=== PATIENT | female | born 1955 | race Caucasian/White ===

== ENCOUNTER 2019-03-13 23:19 | Emergency (ER) | payer SELFPAY ==
[2019-03-14 00:42] LABS: ABSOLUTE BASOPHILS # (AUTO) 0.1 10^3/uL (0.0-0.2); ABSOLUTE LYMPHOCYTES (AUTO) 1.1 10^3/uL (0.5-4.7); ABSOLUTE MONOCYTES (AUTO) 0.9 10^3/uL (0.1-1.4); ABSOLUTE NEUT (AUTO) 7.3 10^3/uL (1.7-8.2); BASOPHILS % (AUTO) 0.6 % (0-2); HEMATOCRIT 37.7 % (36.0-47.0); HEMOGLOBIN 12.2 g/dL (12.0-15.5); LYMPHOCYTES % (AUTO) 11.8 % (13-45); MEAN CORPUSCULAR HEMOGLOBIN 28.1 pg (27.0-33.4); MEAN CORPUSCULAR HGB CONC 32.4 g/dL (32.0-36.0); MEAN CORPUSCULAR VOLUME 87 fl (80-97); MONOCYTES % (AUTO) 9.2 % (3-13); PLATELET COUNT 717 10^3/uL (150-450); RED BLOOD COUNT 4.35 10^6/uL (3.72-5.28); RED CELL DISTRIBUTION WIDTH 17.3 % (11.5-14.0); SEGMENTED NEUTROPHILS % (AUTO) 78.4 % (42-78); TOTAL CELLS COUNTED % (AUTO) 100 %; WHITE BLOOD COUNT 9.4 10^3/uL (4.0-10.5)
[2019-03-14 01:00] LABS: ALBUMIN 4.7 g/dL (3.5-5.0); ALCOHOL 172 mg/dL (NONE DETECTED); ALKALINE PHOSPHATASE 166 U/L (38-126); ASPARTATE AMINO TRANSFERASE 72 U/L (14-36); BILIRUBIN,DIRECT 0.6 mg/dL (0.0-0.4); BILIRUBIN,TOTAL 1.1 mg/dL (0.2-1.3); BLOOD UREA NITROGEN 17 mg/dL (7-20); CALCIUM 8.6 mg/dL (8.4-10.2); CARBON DIOXIDE 12 mmol/L (22-30); CHLORIDE 95 mmol/L (98-107); GLUCOSE 92 mg/dL (75-110); POTASSIUM 5.4 mmol/L (3.6-5.0); TOTAL PROTEIN 7.1 g/dL (6.3-8.2)
[2019-03-14 01:03] LABS: ACETAMINOPHEN < 10 ug/mL (10-30); SALICYLATE < 1.0 mg/dL (2.0-20.0)
[2019-03-14 01:11] LABS: ANION GAP 25 (5-19)
[2019-03-14 02:53] LABS: APPEARANCE,URINE SLIGHTLY-CLOUDY; BILIRUBIN,URINE NEGATIVE (NEGATIVE); COLOR,URINE YELLOW; GLUCOSE, URINE NEGATIVE (NEGATIVE); KETONES,URINE 80 mg/dL (NEGATIVE); LEUKOCYTE ESTERASE,URINE TRACE (NEGATIVE); NITRITE,URINE NEGATIVE (NEGATIVE); PROTEIN,URINE 30 mg/dL (NEGATIVE); URINE SPECIFIC GRAVITY 1.017; UROBILINOGEN,URINE NEGATIVE mg/dL (<2.0)
[2019-03-14 03:06] LABS: URINE AMPHETAMINES SCREEN NEGATIVE; URINE BARBITURATES SCREEN NEGATIVE; URINE BENZODIAZEPINES SCREEN NEGATIVE; URINE COCAINE SCREEN NEGATIVE; URINE MARIJUANA (THC) SCREEN NEGATIVE; URINE METHADONE SCREEN NEGATIVE; URINE PHENCYCLIDINE SCREEN NEGATIVE
[2019-03-14] MEDS ORDERED: DEXTROSE 5%-NORMAL SALINE 1,000 ML IV ONE (03:52)
--- NOTE | 2019-03-14 03:59 | ER Document Report ---
ED General - General Chief Complaint: Medical Clearance Stated Complaint: ETOH Time Seen by Provider: 03/14/19 03:34 Information source: Patient Notes: Patient referred here from [facility] for clearance due to alcohol abuse. Patient states that she had a lot of beer last night. She denies being suicidal or homicidal. She feels better now having received IV fluid. She is requesting some food. No nausea or vomiting. No chest pain or shortness of breath. No other complaints. TRAVEL OUTSIDE OF THE [place] IN LAST 30 DAYS: No - Related Data Allergies/Adverse Reactions: No Known Allergies Allergy (Unverified 03/14/19 04:44) Past Medical History - Social History Smoking Status: Never Smoker Frequency of alcohol use: Heavy Drug Abuse: None Family History: Reviewed & Not Pertinent Patient has suicidal ideation: No Patient has homicidal ideation: No - Past Medical History Cardiac Medical History: Reports: Hx Hypertension Psychiatric Medical History: Reports: Hx Depression Past Surgical History: Reports: Hx Cholecystectomy, Hx Hysterectomy Review of Systems - Review of Systems Constitutional: denies: Chills, Fever -: Yes All other systems reviewed and negative Physical Exam - Vital signs Vitals: Temp Pulse Resp BP Pulse Ox 97.9 F 117 H 14 155/92 H 98 03/13/19 23:34 03/13/19 23:34 03/13/19 23:34 03/13/19 23:34 03/13/19 23:34 Interpretation: Normal - General General appearance: Appears well, Alert - HEENT Head: Normocephalic, Atraumatic Eyes: Normal Pupils: PERRL - Respiratory Respiratory status: No respiratory distress Chest status: Nontender Breath sounds: Normal Chest palpation: Normal - Cardiovascular Rhythm: Regular Heart sounds: Normal auscultation Murmur: No - Abdominal Inspection: Normal Distension: No distension Bowel sounds: Normal Tenderness: Nontender Organomegaly: No organomegaly - Back Back: Normal, Nontender - Extremities General upper extremity: Normal inspection, Nontender, Normal color, Normal ROM, Normal temperature General lower extremity: Normal inspection, Nontender, Normal color, Normal ROM, Normal temperature, Normal weight bearing. No: Karla's sign - Neurological Neuro grossly intact: Yes Cognition: Normal Orientation: AAOx4 Artem Coma Scale Eye Opening: Spontaneous Artem Coma Scale Verbal: Oriented Artem Coma Scale Motor: Obeys Commands Artem Coma Scale Total: 15 Speech: Normal Motor strength normal: LUE, RUE, LLE, RLE Sensory: Normal - Psychological Associated symptoms: Normal affect, Normal mood - Skin Skin Temperature: Warm Skin Moisture: Dry Skin Color: Normal Course - Re-evaluation Re-evalutation: 03/14/19 03:57 EKG per me shows sinus tachycardia at 115. Normal QRS axis. Nonspecific ST changes. 03/14/19 03:58 IV fluids and crackers ordered for acidosis. 03/14/19 05:13 Ativan ordered for patient's jitteriness now that her alcohol level is coming down. 03/14/19 05:[address]ART OUT TO DR[address] MAY, AWAITING REHYDRATION AND DISPOSITION. PT STABLE. 03/14/19 05:59 - Vital Signs Vital signs: Temp Pulse Resp BP Pulse Ox 97.9 F 117 H 14 155/92 H 98 03/13/19 23:34 03/13/19 23:34 03/13/19 23:34 03/13/19 23:34 03/13/19 23:34 - Laboratory Result Diagrams: 03/14/19 00:30 03/14/19 00:30 Laboratory results interpreted by me: 03/14/19 03/14/19 03/14/19 00:30 00:30 02:35 RDW 17.3 H Plt Count 717 H Lymph % (Auto) 11.8 L Seg Neutrophils % 78.4 H Sodium 132.3 L Potassium 5.4 H Chloride 95 L Carbon Dioxide 12 L Anion Gap 25 H Direct Bilirubin 0.6 H AST 72 H Alkaline Phosphatase 166 H Urine Protein 30 H Urine Ketones 80 H Urine Blood SMALL H Ur Leukocyte Esterase TRACE H Salicylates < 1.0 L Acetaminophen < 10 L Discharge - Discharge Clinical Impression: Acidosis Acute alcohol intoxication Qualifiers: Complication of substance-induced condition: uncomplicated Qualified Code(s): F10.920 - Alcohol use, unspecified with intoxication, uncomplicated Condition: Stable Disposition: OTHER
[2019-03-14] MEDS ORDERED: ONDANSETRON HCL INJ/PF 4 MG/2 ML SDV IV ONE (04:41)
[2019-03-14] MEDS ORDERED: ONDANSETRON HCL INJ/PF 4 MG/2 ML SDV ONE (04:42)
[2019-03-14] MEDS ORDERED: LORAZEPAM INJ 2 MG/1 ML VIAL IV ONE (05:14)
[2019-03-14] MEDS ORDERED: NORMAL SALINE 1000 ML 1,000 ML IV ONE (06:30)
--- NOTE | 2019-03-14 06:34 | ER Document Report ---
ED General - General Chief Complaint: Medical Clearance Stated Complaint: ETOH Time Seen by Provider: 03/14/19 03:34 TRAVEL OUTSIDE OF THE [place] IN LAST 30 DAYS: No - HPI Notes: I assumed care of this patient from Dr. Sanders pending at the fluids and reassessment. Please see his note for full history and physical. Briefly, this is a 64-year-old female who presents for medical clearance for detox. She has a history of alcohol abuse. Her initial evaluation showed acidosis with a CO2 of 12. Patient is being hydrated. Patient tells me she feels much better.She has no physical complaints at this t morgan. - Related Data Allergies/Adverse Reactions: No Known Allergies Allergy (Unverified 03/14/19 04:44) Past Medical History - General Information source: Patient - Social History Smoking Status: Never Smoker Frequency of alcohol use: Heavy Drug Abuse: None Family History: Reviewed & Not Pertinent Patient has suicidal ideation: No Patient has homicidal ideation: No - Past Medical History Cardiac Medical History: Reports: Hx Hypertension Psychiatric Medical History: Reports: Hx Depression Past Surgical History: Reports: Hx Cholecystectomy, Hx Hysterectomy Physical Exam - Vital signs Vitals: Temp Pulse Resp BP Pulse Ox 97.9 F 117 H 14 155/92 H 98 03/13/19 23:34 03/13/19 23:34 03/13/19 23:34 03/13/19 23:34 03/13/19 23:34 Course - Re-evaluation Re-evalutation: 03/14/19 06:33 Pt is doing well. Has slight tremors and Ativan has been administered. 03/14/19 11:30 Patient reevaluated. Patient is doing well. Repeat BMP shows correction of anion gap. Patient's denies any further hallucinations. No more tremors. Patient has been seen by psychiatric team. She is stable to go back to detox. - Vital Signs Vital signs: Temp Pulse Resp BP Pulse Ox 97.9 F 117 H 21 H 155/70 H 97 03/13/19 23:34 03/13/19 23:34 03/14/19 10:01 03/14/19 10:01 03/14/19 10:01 - Laboratory Result Diagrams: 03/14/19 00:30 03/14/19 08:33 Laboratory results interpreted by me: 03/14/19 03/14/19 03/14/19 00:30 00:30 02:35 RDW 17.3 H Plt Count 717 H Lymph % (Auto) 11.8 L Seg Neutrophils % 78.4 H Sodium 132.3 L Potassium 5.4 H Chloride 95 L Carbon Dioxide 12 L Anion Gap 25 H Glucose Calcium Direct Bilirubin 0.6 H AST 72 H Alkaline Phosphatase 166 H Urine Protein 30 H Urine Ketones 80 H Urine Blood SMALL H Ur Leukocyte Esterase TRACE H Salicylates < 1.0 L Acetaminophen < 10 L 03/14/19 08:33 RDW Plt Count Lymph % (Auto) Seg Neutrophils % Sodium 132.7 L Potassium 5.1 H Chloride Carbon Dioxide 18 L Anion Gap Glucose 126 H Calcium 8.1 L Direct Bilirubin AST Alkaline Phosphatase Urine Protein Urine Ketones Urine Blood Ur Leukocyte Esterase Salicylates Acetaminophen Discharge - Discharge Clinical Impression: Acidosis Acute alcohol intoxication Qualifiers: Complication of substance-induced condition: uncomplicated Qualified Code(s): F10.920 - Alcohol use, unspecified with intoxication, uncomplicated Condition: Stable Disposition: REHAB FACILITY Additional Instructions: You have been evaluated both medical and behavioral health teams and been deemed appropriate for discharge. You are encouraged to continue taking your medical medications as directed. The behavioral health team has confirmed you still have your voluntary bed at [facility], please take any home medications with you. You are recommended to discuss continued treatment options with your treatment team during your stay at [facility]. ACUTE ALCOHOL INTOXICATION and ALCOHOL ABUSE: Your evaluation revealed very high levels of alcohol. You can from drinking a large amount of alcohol rapidly! Further, there's the risk of falls, traffic accidents, and fights. A high portion (about 50 percent) of the serious injuries seen in hospital emergency rooms are caused by alcohol. Alcohol overdosage is usually due to an underlying emotional or psychiatric problem. You may benefit from counselling. If "binge" drinking is an ongoing problem for you, or if you drink ANY AMOUNT of alcohol EVERY day, you most likely have a tendency to alcoholism. You should avoid alcohol totally. We can refer you for treatment. Persons with alcohol problems are often also prone to other addictions -- you should discuss any use of medications or drugs with the doctor. You should be watched at home for the next several hours by someone who has not been drinking. Get extra fluids for the next 24 hours. Call the doctor if there is repeated vomiting, increasing headache, decreasing level of alertness, or any other worsening. CHRONIC ALCOHOLISM and ALCOHOL ABUSE: Your evaluation reveals evidence of chronic alcoholism, an addiction to alcohol. The tendency to alcoholism may be inherited. Chronic use of alcohol weakens muscles, causes fatty deposits in the liver, damages the stomach, makes you more prone to infections, and can cause defects in unborn children. In the long run, brain atrophy and cirrhosis of the liver result. You are also at greater risk for certain types of cancer, such as cancer of the mouth, throat, stomach, and liver. Counselling services are available to help you. In-hospital treatment programs often help. Support groups such as Alcoholics Anonymous can be very useful in beating this addiction. Your physician can make a referral for you. As alcoholics often are prone to other addictions, you should discuss your use of any other medications with the doctor. ALCOHOL WITHDRAWAL: Your symptoms are caused by alcohol withdrawal. After a period of frequent drinking, the brain and body are changed by the alcohol. When you quit or reduce your drinking, the nervous system becomes unstable. Withdrawal symptoms can start a few hours after your last drink, but sometimes don't begin until a couple of days later. Symptoms can include shakiness, sweating, insomnia, nausea, vomiting, fearfulness, hallucinations, and seizures. In addition to the acute effects of alcohol withdrawal, we often have to deal with the medical effects of alcoholism. These problems often include dehydration, stomach irritation, intestinal bleeding, low blood sugar, liver disease, and pancreas inflammation. Treatment for alcohol withdrawal includes mild sedatives, vitamins, and fluids. You need to be with someone who can help if symptoms become severe. Many patients can withdraw at home. Admission to the hospital or a detox facility may be necessary if withdrawal symptoms are severe and uncontrollable. Abstaining from alcohol is the only effective long-term treatment. If you start drinking again, you will not be able to control yourself after the first drink. Treatment programs are available. In addition, many alcoholics benefit from Alcoholics Anonymous or other support groups available through your counselor or [employer] insurance policy clerk. [employer] and [employer] are support groups for friends and family members of an alcoholic. Go to the emergency room if you develop persistent vomiting, severe abdominal pain, fever, shortness of breath, hallucinations, uncontrollable tremors, or seizures. FOLLOW-UP CARE: If you have been referred to a physician for follow-up care, call the physicians office for an appointment as you were instructed or within the next two days. If you experience worsening or a significant change in your symptoms, notify the physician immediately or return to the Emergency Department at any time for re-evaluation.
--- NOTE | 2019-03-14 09:04 | EKG REPORT ---
SEVERITY:- BORDERLINE ECG - SINUS TACHYCARDIA BORDERLINE INFERIOR Q WAVES : Confirmed by: Dick Narayanan MD 14-Mar-2019 09:04:05
[2019-03-14 09:05] LABS: ANION GAP 17 (5-19); BLOOD UREA NITROGEN 14 mg/dL (7-20); CALCIUM 8.1 mg/dL (8.4-10.2); CARBON DIOXIDE 18 mmol/L (22-30); CHLORIDE 98 mmol/L (98-107); GLUCOSE 126 mg/dL (75-110); POTASSIUM 5.1 mmol/L (3.6-5.0)
[2019-03-14] MEDS ORDERED: THIAMINE HCL 100 MG in NORMAL SALINE 50 ML IV ONE (09:11)
[2019-03-14] MEDS ORDERED: THIAMINE HCL INJ 200 MG/2 ML VIAL ONE (09:22)
--- NOTE | 2019-03-14 10:08 | ER Document Report ---
Doctor's Note Notes: 03/14/19 10:07 Rounds: Chart reviewed and patient interviewed. Patient was at detox and referred here because her blood sugar was too high?. Patient has no complaints at this time. She denies suicidal thoughts. Lab studies showed some abnormalities of her sodium, potassium, chloride, and CO2. She was given 2 L of fluid during her stay in the department. Repeat electrolytes were better. Blood alcohol was 172. Vital signs are normal with the exception of a slightly elevated heart rate at 110 currently at the bedside by me. Patient appears to be medically stable for transfer or discharge. Loree Rhodes MD
[2019-03-14 12:03] VITALS: BP 156/74
== END 2019-03-14 12:00 ==
LOC: ER 23:19
DX: E87.2 Acidosis (principal); F10.920 Alcohol use, unspecified with intoxication, uncomplicated; I10 Essential (primary) hypertension
CPT/HCPCS: 93005; 99284; 96361; 96375; 96365; 36415; 80307 ×4; 85025; 80053; 81001; 93010; J2060; J3411; J2405; J7042; J7030